=== PATIENT | female | born 1990 | race Caucasian/White ===

== ENCOUNTER 2025-04-07 23:50 | Emergency (ER) | payer BC, SELFPAY ==
[2025-04-07 23:50] VITALS: BMI 28.6
[2025-04-07 23:58] VITALS: BP 143/100
[2025-04-08 00:08] VITALS: BP 124/93
[2025-04-08 01:00] VITALS: BP 126/66
--- NOTE | 2025-04-08 01:29 | ED.GENMED ---
History of Present Illness
General
Chief Complaint: Heart Rate Problem
Time Seen by Provider: 04/08/25 01:29
History of Present Illness
History of Present Illness:
REVIEW OF OLD RECORDS
No old records available for review in [facility]. She has had a history of appendectomy and has a history of anxiety and depression as well.
Note:
CHIEF COMPLAINT(S)
Fluttering in the chest and irregular heartbeat sensation.
HISTORY OF PRESENT ILLNESS
The patient is a 34-year-old female presenting with concerns of chest fluttering and perceived irregular heartbeat. The symptoms began after a nap, around 6 to 6:30 PM. The patient described initially experiencing paresthesia, specifically pins and
needles, in the left arm, which subsided after shaking the arm. Subsequently, she perceived an irregular fluttering sensation in her chest while relaxing and watching TV. The patient has experienced similar sensations ('a skiffy kind of thing')
before but noted that this episode was persistent, prompting her to seek evaluation to rule out any serious arrhythmia.
The initial electrocardiogram showed normal sinus rhythm with frequent premature atrial contractions but no sustained or life-threatening arrhythmias. The patient reported significant caffeine intake earlier in the day, which could have contributed
to the symptoms.
The patient denied any significant medical history except for a recent appendectomy. She expressed feeling better at the time of the examination and described the fluttering sensation as resolving.
CHRONIC MEDICAL CONDITIONS SIGNIFICANTLY AFFECTING CARE
The patient is currently taking Vyvanse for binge eating disorder and attention deficit disorder, which she notes may be contributing to increased anxiety.
SOCIAL DETERMINANTS AFFECTING HEALTH
The patient mentioned that she recently discontinued Prozac under the guidance of a psychiatric nurse practitioner.
PAST SURGICAL HISTORY
Appendectomy (recent).
MEDICATIONS
Vyvanse for binge eating disorder and attention deficit disorder.
PHYSICAL EXAM
- Cardiovascular: No murmurs, no ectopy, regular rate
- Respiratory: Breath sounds normal on auscultation.
- General: Well appearing in no distress
- HEENT: Moist oral mucosa
- Pulmonary: No respiratory distress, breath sounds are clear and equal
- Abdomen: Soft with no peritoneal signs, no tenderness
- Neurologic: Excellent strength all extremities, no coordination deficits
- Psychiatric: Appropriate mental status, normal insight and judgement
- Extremities: Nontender, no edema, moves all extremities equally
- Skin: No rash, no lesions
PLAN
The patient was advised to be mindful of stimulant intake, including caffeine and medications like Vyvanse, as these may exacerbate symptoms. She was informed that the monitoring showed no persistent arrhythmias and was reassured about her
condition. No blood work was deemed necessary at this time. The patient was advised to follow up with her psychiatric nurse practitioner regarding the continued need for Vyvanse.
DIFFERENTIAL DIAGNOSIS
The Differential Diagnosis includes, in no particular order and is not limited to:
1. Premature atrial contractions
2. Anxiety-related palpitations
3. Stimulant-induced tachycardia
4. Atrial fibrillation
5. Ventricular ectopy
6. Thyrotoxicosis
7. Electrolyte imbalance
8. Mitral valve prolapse
9. Cardiac arrhythmia secondary to medication
10. Panic disorder
EKG
My independent EKG interpretation is:
- Rhythm: Sinus rhythm
- Heart Rate: 72 beats per minute
- Arrhythmias: Frequent atrial ectopy resulting in atrial bigeminy
- Intervals: Normal (RI interval, QRS duration, QT interval)
- [place]: Within normal limits
- Abnormalities: None noted, aside from arrhythmias
CARE-UPDATE
04/08/25 - 01:39
The patient declines blood work. Currently in sinus rhythm with no ectopy observed. Patient suspects symptoms may be due to excessive caffeine consumption.
Phy Exam
Physical Exam
Physical Exam:
See HPI
Course
Orders/Labs/Results
Orders:
Orders
04/07/25 23:51
EKG [Electrocardiogram (*1)] Urgent
Reason for Study: Palpitations
EKG- Treatment ONCE
Vital Signs
Initial and Last Documented VS:
Initial Vital Signs
Temp Pulse Resp BP Pulse Ox
36.5 C 61 16 143/100 99
04/07/25 23:58 04/07/25 23:58 04/07/25 23:58 04/07/25 23:58 04/07/25 23:58
Last Documented Vital Signs
Temp Pulse Resp BP Pulse Ox
36.5 C 67 19 126/66 98
04/07/25 23:58 04/08/25 01:15 04/08/25 01:15 04/08/25 01:00 04/08/25 01:15
*Pulse Oximetry
Patient hypoxic: no (99% on room air)
*Application Release Manager Interpretation
Rate: normal
Interpretation: normal
Heart Rate: 60
Rhythm: sinus
*Critical Care Note
Total Time (30-74mins, 75-104mins- exclusive of procedures): Not Applicable
ED Attending Note
-
Portions of this chart may have been created with voice recognition software.� Occasional wrong word or��sound alike� substitutions may have occurred due to the inherent limitations of voice recognition software.
Discharge Plan
Departure
Patient Disposition: Home (Routine Discharge)
Date of Disposition: 04/08/25
Time of Disposition: 01:36
Patient with high blood pressure during this ER visit?: Yes
Discharge Problem:
Atrial premature contractions
Instructions: Palpitations (DC)
Referrals:
UNKNOWN - PT DOES,NOT KNOW [Family Provider]
Activity Restrictions/Additional Instructions:
Your initial EKG showed some premature atrial contractions. These are very common and at times can become more prominent. The initial EKG showed prominence to the point that you were in 'atrial bigeminy'. However as I walked in the room he
remained in a sinus rhythm without any ectopic beats noted at all. Return here if worse or other concerns. Try to limit the use of caffeine.
Interventions
Interventions:
*Risk Screen - Suicide Last Done: 04/07/25 23:58
*General Assessment Last Done: 04/08/25 00:14
*Neglect/Abuse Screening Last Done: 04/08/25 00:14
*ED- Fall Risk Assessment Last Done: 04/08/25 00:14
*ED COVID-19 Vaccine History Last Done: 04/08/25 00:14
ED- Cardiac Assessment Last Done: 04/08/25 00:14
ED- Pulmonary Assessment Last Done: 04/08/25 00:14
Discharge Date and Time
Print Language: GUYANESE
== END 2025-04-08 01:48 | disposition home or self-care (01) ==
LOC: EMR 23:50
PROVIDERS: EMERGENCY PHYSICIAN Emergency Medicine
DX: I49.1 Atrial premature depolarization (principal); F98.8 Other specified behavioral and emotional disorders with onset usually occurring in childhood and adolescence; F41.8 Other specified anxiety disorders; Z79.899 Other long term (current) drug therapy; Z90.49 Acquired absence of other specified parts of digestive tract
CPT/HCPCS: 99283; 93005